=== PATIENT | male | born 1945 | race Caucasian/White ===

== ENCOUNTER → 2023-07-06 08:33 | Outpatient (CLI) | payer MEDICARE, OTHER, SELFPAY ==
--- NOTE | 2023-07-06 | DI.CT.S_ITS ---
PROCEDURE: CT LUNG LOW DOSE SCREENING INDICATIONS: lung cancer screening TECHNIQUE: Noncontrast 2.0-2.5 mm thick sections acquired from the pulmonary apices to the posterior costophrenic angles. 7 mm thick axial MIP, and 5 mm coronal and sagittal reformats were then acquired. For radiation dose reduction, the following was used: automated exposure control, adjustment of mA and/or kV according to patient size. COMPARISON: [facility], CT, CT LOW DOSE LUNG CA SCREENING, 05/23/2022, 10:39. FINDINGS: Image quality: Diagnostic, given the low radiation dose technique. Lungs and pleura: No suspicious pulmonary nodule. A benign calcified granuloma is seen in the left lower lobe. Bilateral centrilobular emphysema. No acute consolidation. No pleural effusion or pneumothorax. Mediastinum: Heart size is normal. No pericardial effusion. Mild coronary artery calcifications. No mediastinal adenopathy by size criteria. Thoracic aorta and central pulmonary arteries are normal in size. Esophagus is normal in caliber. No hiatal hernia. Bones and chest wall: No suspicious bony lesions. No vertebral body compression fractures. No axillary or supraclavicular adenopathy by size criteria. No thyroid nodules which require sonographic follow up, per consensus guidelines. Upper Abdomen: Visualized upper abdomen solid organs and bowel loops appear normal in the absence of contrast. IMPRESSION: No suspicious pulmonary nodules. LUNG-RADS 1; continued annual screening, if eligible. Clinically Significant Non-pulmonary Findings: None. Approved by: Donte Ivory M.D. on 07/06/2023 at 21:50
== END ==
PROVIDERS: Family Provider Family Medicine; PCP Family Medicine; Referring Provider Family Medicine; Visit Provider Family Medicine
DX: Z87.891 Personal history of nicotine dependence (principal); Z12.2 Encounter for screening for malignant neoplasm of respiratory organs; J43.9 Emphysema, unspecified
CPT/HCPCS: 71271

== ENCOUNTER 2024-09-09 09:43 | Emergency (ER) | payer MEDICARE, OTHER, SELFPAY ==
[2024-09-09] VITALS (30 sets, daily range): BP systolic 117–167; BP diastolic 59–122; PULSE 51–76; RESP 11–33; TEMP 36.4–37.2; O2SAT 91–100
--- NOTE | 2024-09-09 09:44 | DI.CT.S_ITS ---
PROCEDURE: CT ANGIO HEAD AND NECK INDICATIONS: Altered mental status TECHNIQUE: After the administration of intravenous contrast, 1 mm thick sections acquired from the aortic arch through the [place]. 3-dimensional bmlrnlh-rubepdpac-nsrlapfdii (MIP) and/or volume rendering reformats were acquired of the central intracranial vasculature and neck separately. For radiation dose reduction, the following was used: automated exposure control, adjustment of mA and/or kV according to patient size. COMPARISON: None. FINDINGS: Image quality: Diagnostic. BRAIN: CSF spaces: Ventricles are normal in size and shape. Basal cisterns are patent. No extra-axial fluid collections. Brain: No significant abnormality of the brain can be seen. Skull and face: Calvarium and facial bones appear intact, without suspicious lesions. Orbits appear normal. Sinuses: Sinuses and mastoids are clear. HEAD CT ANGIOGRAPHY: Anterior circulation: Intracranial internal carotid arteries are normal in size and flow. The flow within the paired anterior cerebral arteries is normal and symmetric. The flow within the middle cerebral arteries is normal and symmetric. The anterior communicating artery is seen. No aneurysms are seen. Posterior circulation: Visualized portions of the vertebral arteries demonstrate normal caliber, and join to form a normal appearing basilar artery. Flow within the posterior cerebral arteries is normal and symmetric. No aneurysms are seen. NECK CT ANGIOGRAPHY: Carotid system: The great vessels demonstrate a conventional anatomy as they arise from the aortic arch. The origins of the common carotid arteries appear patent. The common carotid arteries demonstrate normal caliber and courses. The bifurcation regions are both widely patent. The internal carotid arteries demonstrate normal calibers and courses. Posterior circulation: The origins of the vertebral arteries both appear widely patent. The more superior extracranial portions of both vertebral arteries also demonstrate normal courses and calibers. They join to form a normal appearing basilar artery. Soft tissues: Visualized neck soft tissues demonstrate no suspicious abnormalities. Bones: No suspicious bony lesions. Visualized cervical spine appears normally aligned. IMPRESSION: No significant intracranial arterial abnormality is seen. No significant abnormality is seen within the arteries of the neck. Any quantitative measurements of stenosis were performed using NASCET criteria. Dictated by: Darrell Murray M.D. on 09/09/2024 at 10:07 Approved by: Darrell Murray M.D. on 09/09/2024 at 10:10
--- NOTE | 2024-09-09 09:44 | DI.CT.S_ITS ---
PROCEDURE: CT STROKE INDICATIONS: Altered mental status TECHNIQUE: Noncontrast 4.5 mm thick angled axial sections acquired from the foramen magnum to the vertex, with coronal reformats. For radiation dose reduction, the following was used: automated exposure control, adjustment of mA and/or kV according to patient size. COMPARISON: None. FINDINGS: Image quality: Diagnostic. CSF spaces: Basal cisterns are patent. No extra-axial fluid collections. The ventricles are symmetric in size and shape. Brain: No intracranial bleeds or masses. There is cerebral volume loss for age, with resultant ventricular and sulcal prominence. There are periventricular and deep white matter chronic small vessel ischemic changes. There is intracranial internal carotid artery atherosclerosis. Skull and face: Calvarium and visualized facial bones appear intact, without suspicious lesions. Sinuses: Visualized sinuses and mastoids are clear. IMPRESSION: No acute intracranial pathology. Comment: Findings were discussed with Dr. Lira on 09/09/2024 at 1001 hours This study fulfills neurological imaging criteria for inclusion or exclusion of acute stroke therapies based on available published neurological guidelines. Dictated by: Darrell Murray M.D. on 09/09/2024 at 10:00 Approved by: Darrell Murray M.D. on 09/09/2024 at 10:02
--- NOTE | 2024-09-09 09:48 | DI.CT.S_ITS ---
PROCEDURE: CT CERVICAL SPINE WO CON INDICATIONS: altered mental status TECHNIQUE: Noncontrast 3 mm thick sections acquired from the skull base to the T4 level. Sagittal and coronal reformats were then constructed. For radiation dose reduction, the following was used: automated exposure control, adjustment of mA and/or kV according to patient size. COMPARISON: None. FINDINGS: Image quality: Excellent. Bones: No fractures or dislocations. Diffuse osteopenia. Mild superior endplate compressions of T1, T2, and T4 are likely chronic. Diffuse cervical spondylosis. Multilevel facet arthropathy. There is severe left bony foraminal narrowing at C3-C4 and C4-C5. Visualized superior ribs are intact. Soft tissues: Prevertebral soft tissues are normal in thickness. No paravertebral hematomas. No apical pneumothoraces. IMPRESSION: 1. No displaced fracture or traumatic subluxation. 2. Compressions of T1, T2, and T4 likely chronic. 3. Cervical spondylosis. Comment: Consider nonemergent DEXA bone densitometry. Dictated by: Darrell Murray M.D. on 09/09/2024 at 10:02 Approved by: Darrell Murray M.D. on 09/09/2024 at 10:05
--- NOTE | 2024-09-09 09:49 | EKG_ITS ---
[place] [id number] [address] [place] [address] Test Date: 2024-09-09 Pat Name: Trevor Roberts Department: Room: Gender: Male [employer]: JEFE : 1945 Requested By: Order Number: [id number] Reading MD: Minh Devlin MD Measurements Intervals [place] Rate: 69 P: 12 NE: 204 QRS: -61 QRSD: 112 T: 80 QT: 398 QTc: 426 Interpretive Statements Normal sinus rhythm Left axis deviation Nonspecific ST and T wave abnormality Electronically Signed On 09-10-2024 7:36:18 PST by Minh Devlin MD
--- NOTE | 2024-09-09 09:50 | ED.AMS ---
HPI - Altered Mental Status General Chief Complaint: Neuro Symptoms/Deficit Stated Complaint: Altered mental status,code stroke Time Seen by Provider: 09/09/24 09:44 History of Present Illness HPI narrative: Patient brought in by ambulance from local [facility]. Blood sugar 126. Last well-known possibly 9:00 a.m., about 50 minutes ago. Patient was with a friend. Friend had left him at the car briefly and return it to find him on the ground next to the car. Patient was unresponsive by EMS but now becoming much more alert and answering to name. He denies any history of seizure. Patient is restless at this time. Has bruising to the right eyebrow area. He is moving all 4 extremities. Code stroke was activated prior to arrival. Related Data Home Medications Medication Instructions Recorded Confirmed ASPIRIN (Aspirin EC) 81 mg PO QDAY ##0 02/29/12 09/09/24 ibuprofen 200 mg tablet 200 mg PO Q6HP ##0 01/19/13 gabapentin 300 mg capsule 300 mg PO BEDTIME PRN foot pain 09/09/24 09/09/24 omeprazole magnesium 20 mg 20 mg PO BID 09/09/24 09/09/24 capsule,delayed release (Acid Window Sash Installer (omeprazole)) Previous Rx's Medication Instructions Recorded simvastatin 40 mg tablet 40 mg PO HS #90 tabs 02/05/17 levetiracetam 500 mg tablet 500 mg PO BID #60 tabs 09/09/24 (Keppra) Allergies Allergy/AdvReac Type Severity Reaction Status Date / Time No Known Drug Allergies Allergy Verified 09/09/24 09:58 Review of Systems Review of Systems Narrative: GENERAL: Negative chills, fatigue, malaise, fever, sweats. HEENT: Negative sinus pain, ear pain, sore throat positive tongue injury RESPIRATORY: Negative dyspnea, cough CARDIOVASCULAR: Negative chest pain, palpitations GASTROINTESTINAL: Negative nausea, vomiting, abdominal pain : Negative dysuria, frequency, hematuria MUSCULOSKELETAL: Negative muscle or bony pain SKIN: Negative rash, skin lesions NEUROLOGIC: Negative weakness, numbness, positive confusion, positive seizure ROS Unobtainable: All systems reviewed & are unremarkable except as noted in HPI and below Patient History Surgical History (Updated 11/19/17 @ 05:52 by Conversion Provider) Status post appendectomy Family History (Updated 10/30/16 @ 00:00 by Conversion Provider) Mother Stroke Social History Smoking Status: Unknown if ever smoked Exam Narrative Exam Narrative: GENERAL: in no distress, not toxic not dyspneic HEAD: Normocephalic. Abrasion to the corner of the right eye/skin fold. EYES: Pupils equal round EOMI, no subconjunctival hematoma ENT: Mucous membranes moist. NECK: Trachea midline. No midline tenderness or step-off the cervical thoracic or lumbar spine CARDIOVASCULAR: Regular rate and rhythm RESPIRATORY: Clear to auscultation. Breath sounds equal bilaterally. No wheezes, rales, or rhonchi. GASTROINTESTINAL: Abdomen soft, non-tender EXTREMITIES: No gross deformities. Nontender bilateral shoulders elbows wrists pelvis hips knees and ankles. BACK: No flank tenderness. NEURO: On arrival patient awake alert oriented self and date of only. However after 1 hour patient awake alert oriented x4. Clear speech. Fast exam is negative. Improving rapidly. SKIN: Warm and dry, abrasion to the distal arm left side abrasion to the left patella. PSYCH: Not anxious, is cooperative Initial Vital Signs Initial Vital Signs: Vital Signs Temperature 97.6 F 09/09/24 09:44 Pulse Rate 75 09/09/24 09:44 Respiratory Rate 15 09/09/24 09:44 Blood Pressure 117/82 09/09/24 09:44 Pulse Oximetry 95 09/09/24 09:44 Oxygen Delivery Method Room Air 09/09/24 09:44 Scores NIH Stroke Scale Level of Conciousness: Alert, keenly responsive Ask month/age: Answers both questions correctly. Open/close eyes, close hand: Performs both tasks correctly Best gaze horizontal: Normal Visual daley: No visual loss Facial palsy: Normal symetrical movement Left arm drift: No drift for full 10 sec Right arm drift: No drift for full 10 sec Left leg drift: No drift for full 5 sec Right leg drift: No drift for full 5 sec Limb ataxia: Absent Sensory on face/arms/legs: Normal, no sensory loss Best language: No aphasia, normal Dysarthria: Normal Extinction or inattention: No abnormality Total NIH Stroke scale score: 0 Course Orders Ordered: Discontinued Medications Bacitracin (Bacitracin Oint 0.9 Gm Pckt) 1 applic TOP NOW ONE Stop: 09/09/24 16:15 Last Admin: 09/09/24 16:17 Dose: 1 applic Documented By: JG Levetiracetam 1,000 mg/ Sodium (Chloride) 110 mls @ 440 mls/hr IV NOW ONE Stop: 09/09/24 10:12 Last Infusion: 09/09/24 11:07 Dose: Infused Documented By: Admin: 09/09/24 10:36 Dose: 440 mls/hr Documented By: CHEKO Sodium Chloride (Normal Saline 0.9%) 500 mls @ 1,000 mls/hr IV BOLUS ONE Stop: 09/09/24 10:43 Last Infusion: 09/09/24 11:16 Dose: Infused Documented By: Admin: 09/09/24 10:33 Dose: 1,000 mls/hr Documented By: RB Lorazepam (Lorazepam 2 Mg/Ml Inj) 2 mg IV NOW ONE Stop: 09/09/24 09:47 Last Admin: 09/09/24 13:14 Dose: Not Given Documented By: JUAN Vital Signs Vital signs: Vital Signs - 8 hr 09/09/24 09:44 09/09/24 09:55 09/09/24 09:56 Temperature 97.6 F Pulse Rate 75 76 Respiratory Rate 15 33 H Blood Pressure 117/82 117/82 Pulse Oximetry 95 Oxygen Delivery Method Room Air 09/09/24 09:56 09/09/24 10:00 09/09/24 10:00 Temperature Pulse Rate 75 73 Respiratory Rate 26 H 23 Blood Pressure 139/76 Pulse Oximetry 94 Oxygen Delivery Method 09/09/24 10:05 09/09/24 10:05 09/09/24 10:10 Temperature Pulse Rate 72 Respiratory Rate 26 H Blood Pressure 165/78 H 141/76 H Pulse Oximetry Oxygen Delivery Method 09/09/24 10:10 09/09/24 10:16 09/09/24 10:16 Temperature Pulse Rate 66 67 Respiratory Rate 16 26 H Blood Pressure 142/73 H Pulse Oximetry 91 Oxygen Delivery Method Room Air 09/09/24 10:20 09/09/24 10:21 09/09/24 10:21 Temperature Pulse Rate 57 L 56 L Respiratory Rate 17 24 Blood Pressure 162/72 H Pulse Oximetry 100 96 Oxygen Delivery Method 09/09/24 10:26 09/09/24 10:26 09/09/24 10:30 Temperature Pulse Rate 68 59 L Respiratory Rate 11 L 27 H Blood Pressure 141/63 H Pulse Oximetry 94 94 Oxygen Delivery Method 09/09/24 10:31 09/09/24 10:31 09/09/24 10:46 Temperature Pulse Rate 58 L Respiratory Rate 30 H Blood Pressure 167/117 H 153/122 H Pulse Oximetry 91 Oxygen Delivery Method 09/09/24 10:46 09/09/24 11:00 09/09/24 11:01 Temperature Pulse Rate 59 L 62 58 L Respiratory Rate 18 21 Blood Pressure Pulse Oximetry 92 100 99 Oxygen Delivery Method 09/09/24 11:01 09/09/24 11:16 09/09/24 11:16 Temperature Pulse Rate 71 Respiratory Rate 22 Blood Pressure 164/77 H 124/65 Pulse Oximetry 99 Oxygen Delivery Method 09/09/24 11:30 09/09/24 11:31 09/09/24 11:31 Temperature Pulse Rate 55 L 55 L Respiratory Rate 18 12 Blood Pressure 132/59 L Pulse Oximetry 98 99 Oxygen Delivery Method 09/09/24 11:45 09/09/24 11:45 09/09/24 12:00 Temperature Pulse Rate 55 L 54 L Respiratory Rate 21 19 Blood Pressure 131/61 Pulse Oximetry 98 99 Oxygen Delivery Method 09/09/24 12:00 09/09/24 12:30 09/09/24 12:32 Temperature Pulse Rate 70 Respiratory Rate Blood Pressure 132/60 158/67 H Pulse Oximetry 95 Oxygen Delivery Method 09/09/24 12:32 09/09/24 13:00 09/09/24 13:30 Temperature Pulse Rate 54 L 54 L 56 L Respiratory Rate 11 L 21 Blood Pressure Pulse Oximetry 98 99 97 Oxygen Delivery Method 09/09/24 14:00 09/09/24 15:04 09/09/24 15:06 Temperature Pulse Rate 51 L 52 L Respiratory Rate 17 Blood Pressure Pulse Oximetry 96 98 97 Oxygen Delivery Method 09/09/24 15:06 09/09/24 15:15 09/09/24 15:15 Temperature Pulse Rate 52 L Respiratory Rate 18 Blood Pressure 133/64 144/69 H Pulse Oximetry 98 Oxygen Delivery Method 09/09/24 15:30 09/09/24 15:30 Temperature Pulse Rate 54 L Respiratory Rate 21 Blood Pressure 130/63 Pulse Oximetry 97 Oxygen Delivery Method MDM - Altered Mental Status Lab Data 09/09/24 10:00 09/09/24 10:00 Labs: Lab Results 09/09/24 09/09/24 09/09/24 Range/Units 10:00 10:11 12:25 WBC 7.3 (4.5-11.0) X10^3/uL RBC 3.74 L (4.5-5.9) X10^6/uL Hgb 12.0 L (13.5-17.5) g/dL Hct 34.6 L (41-53) % MCV 92.6 (80-100) fL MCH 32.1 (26-34) PG MCHC 34.7 (30-36) % RDW 13.6 (11.6-14.8) % Plt Count 177 (150-400) X10^3/uL Neut % (Auto) 61.2 (50-75) % Lymph % (Auto) 29.8 (25-40) % [place] % (Auto) 7.6 (3-14) % Eos % (Auto) 0.6 L (2-4) % Baso % (Auto) 0.8 (0-2) % Neut # (Auto) 4400 (3855-9570) /uL Lymph # (Auto) 2200 (1647-5873) /uL [place] # (Auto) 600 (0-900) /uL Eos # (Auto) 0 (0-450) /uL Baso # (Auto) 100 (0-100) /uL PT 11.5 (9.4-12.5) SECONDS INR 1.0 (0.9-1.3) APTT 27 (25.1-36.5) SECONDS Sodium 132 L (137-145) mmol/L Potassium 3.8 (3.4-5.1) mmol/L Chloride 100 (98-107) mmol/L Carbon Dioxide 18 L (22-32) mmol/L BUN 14 (9-20) mg/dL Creatinine 0.99 (0.66-1.25) mg/dL Estimated GFR > 60 (>60) mL/min BUN/Creatinine Ratio 14.1 (6-22) Glucose 159 H (80-110) mg/dL Lactate 5.2 H* 1.3 (0.7-2.1) mmol/L Calcium 9.0 (8.4-10.2) mg/dL Total Bilirubin 0.6 (0.2-1.3) mg/dL AST 36 (17-59) IU/L ALT 25 (<50) IU/L Alkaline Phosphatase 53 (38-126) U/L Total Creatine Kinase 148 (55-170) U/L Troponin I 0.024 (0.01-0.034) ng/mL Total Protein 6.3 (6.3-8.2) g/dL Albumin 4.1 (3.5-5.0) g/dL Globulin 2.2 (1.7-4.1) g/dL Albumin/Globulin Ratio 1.9 (1.0-2.8) Ethyl Alcohol < 10 ( - 10) mg/dL Urine Dip Bedside Urine Glucose Negative Bedside Urine Bilirubin - Negative Bedside Urine Ketone - Negative Urine Specific [place] 1.015 Bedside Urine Occult Blood - Negative Bedside Urine pH 7.0 Bedside Urine Protein - Negative Bedside Urine Urobilinogen +/- 1mg Bedside Urine Nitrite - Negative Bedside Urine Leukocytes - Negative Esterase Imaging Data CT scan - head: Radiologist's Impression: No acute finding CT - cervical spine: Radiologist's Impression: [place] [address] CT Scan Report Signed Patient: Trevor Roberts MR#: [id number] : 1945 Acct:[id number] Age/Sex: 79 / M Date of Service: 09/09/24 Loc: ED Accession Number: [id number] Procedure: CT cervical spine wo con Ordering Provider: Myke Lira MD PROCEDURE: CT CERVICAL SPINE WO CON INDICATIONS: altered mental status TECHNIQUE: Noncontrast 3 mm thick sections acquired from the skull base to the T4 level. Sagittal and coronal reformats were then constructed. For radiation dose reduction, the following was used: automated exposure control, adjustment of mA and/or kV according to patient size. COMPARISON: None. FINDINGS: Image quality: Excellent. Bones: No fractures or dislocations. Diffuse osteopenia. Mild superior endplate compressions of T1, T2, and T4 are likely chronic. Diffuse cervical spondylosis. Multilevel facet arthropathy. There is severe left bony foraminal narrowing at C3-C4 and C4-C5. Visualized superior ribs are intact. Soft tissues: Prevertebral soft tissues are normal in thickness. No paravertebral hematomas. No apical pneumothoraces. IMPRESSION: 1. No displaced fracture or traumatic subluxation. 2. Compressions of T1, T2, and T4 likely chronic. 3. Cervical spondylosis. Comment: Consider nonemergent DEXA bone densitometry. Dictated by: Darrell Murray M.D. on 09/09/2024 at 10:02 Approved by: Darrell Murray M.D. on 09/09/2024 at 10:05 CTA - brain/neck: Radiologist's Impression: [address] [address] [address] Scan Report Signed Patient: Trevor Roberts MR#: [id number] : 1945 Acct:[id number] Age/Sex: 79 / M Date of Service: 09/09/24 Loc: ED Accession Number: [id number] Procedure: CT angio head and neck Ordering Provider: Myke Lira MD PROCEDURE: CT ANGIO HEAD AND NECK INDICATIONS: Altered mental status TECHNIQUE: After the administration of intravenous contrast, 1 mm thick sections acquired from the aortic arch through the [place]. 3-dimensional rycvxsk-okpueqdfo-gxspveblwr (MIP) and/or volume rendering reformats were acquired of the central intracranial vasculature and neck separately. For radiation dose reduction, the following was used: automated exposure control, adjustment of mA and/or kV according to patient size. COMPARISON: None. FINDINGS: Image quality: Diagnostic. BRAIN: CSF spaces: Ventricles are normal in size and shape. Basal cisterns are patent. No extra-axial fluid collections. Brain: No significant abnormality of the brain can be seen. Skull and face: Calvarium and facial bones appear intact, without suspicious lesions. Orbits appear normal. Sinuses: Sinuses and mastoids are clear. HEAD CT ANGIOGRAPHY: Anterior circulation: Intracranial internal carotid arteries are normal in size and flow. The flow within the paired anterior cerebral arteries is normal and symmetric. The flow within the middle cerebral arteries is normal and symmetric. The anterior communicating artery is seen. No aneurysms are seen. Posterior circulation: Visualized portions of the vertebral arteries demonstrate normal caliber, and join to form a normal appearing basilar artery. Flow within the posterior cerebral arteries is normal and symmetric. No aneurysms are seen. NECK CT ANGIOGRAPHY: Carotid system: The great vessels demonstrate a conventional anatomy as they arise from the aortic arch. The origins of the common carotid arteries appear patent. The common carotid arteries demonstrate normal caliber and courses. The bifurcation regions are both widely patent. The internal carotid arteries demonstrate normal calibers and courses. Posterior circulation: The origins of the vertebral arteries both appear widely patent. The more superior extracranial portions of both vertebral arteries also demonstrate normal courses and calibers. They join to form a normal appearing basilar artery. Soft tissues: Visualized neck soft tissues demonstrate no suspicious abnormalities. Bones: No suspicious bony lesions. Visualized cervical spine appears normally aligned. IMPRESSION: No significant intracranial arterial abnormality is seen. No significant abnormality is seen within the arteries of the neck. Any quantitative measurements of stenosis were performed using NASCET criteria. Dictated by: Darrell Murray M.D. on 09/09/2024 at 10:07 Approved by: Darrell Murray M.D. on 09/09/2024 at 10:10 CT scan - chest: Radiologist's Impression: [address] [address] [address] Scan Report Signed Patient: Trevor Roberts MR#: [id number] : 1945 Acct:[id number] Age/Sex: 79 / M Date of Service: 09/09/24 Loc: ED Accession Number: [id number] Procedure: CT angio chest PE protocol Ordering Provider: Myke Lira MD PROCEDURE: CT ANGIO CHEST PE PROTOCOL INDICATIONS: Chest pain TECHNIQUE: After the administration of intravenous contrast, 2 mm thick sections acquired from the pulmonary apices to the posterior costophrenic angles. 3-dimensional maximum intensity projection (MIP) coronal and sagittal reformats were then acquired through the thorax. For radiation dose reduction, the following was used: automated exposure control, adjustment of mA and/or kV according to patient size. COMPARISON: [facility], CT, CT LUNG LOW DOSE SCREENING, 07/06/2023, 8:46. FINDINGS: Image quality: Diagnostic Lungs and pleura: Agmv-pd-zevaflay basal atelectasis and ground-glass opacities. No pleural effusions. Mediastinum, heart, and esophagus: No acute pulmonary embolism. Coronary calcifications and cardiomegaly. Mild nonspecific wall thickening at the gastroesophageal junction. The esophagus is mildly patulous. No pathologic lymph nodes by size criteria Chest wall and thyroid: Unremarkable Upper abdomen: Separately dictated Bones: There are degenerative changes. Suspect old left rib fractures. IMPRESSION: No acute pulmonary embolism. Mild lower lung ground-glass opacities which may be infectious/inflammatory, with superimposed atelectasis. Consider continued lung cancer screening if patient remains eligible. Cardiomegaly and coronary calcifications Dictated by: Cornelius Johnson M.D. on 09/09/2024 at 12:40 Approved by: Cornelius Johnson M.D. on 09/09/2024 at 12:44 CT scan - abdomen/pelvis: Radiologist's Impression: [address] [address] [address] Scan Report Signed Patient: Trevor Roberts MR#: [id number] : 1945 Acct:[id number] Age/Sex: 79 / M Date of Service: 09/09/24 Loc: ED Accession Number: [id number] Procedure: CT abdomen pelvis w con Ordering Provider: Myke Lira MD PROCEDURE: CT ABDOMEN PELVIS W CON INDICATIONS: Abdominal pain TECHNIQUE: After the administration of intravenous contrast, axial sections acquired from the lung bases to the pubic symphysis. Coronal and sagittal reformats were performed. For radiation dose reduction, the following was used: automated exposure control, adjustment of mA and/or kV according to patient size. COMPARISON: None. FINDINGS: Image quality: Diagnostic Lower chest: Separately dictated Mildly patulous distal esophagus with small hiatal hernia. Coronary calcifications. Liver: Unremarkable Gallbladder and biliary system: Unremarkable, nondilated Pancreas: Trcc-qr-wewxxwzy parenchymal atrophy. No ductal dilation Spleen: Prominent at 13 cm AP dimension Adrenals: No discrete nodules Kidneys: No solid mass. No hydronephrosis. Vessels and lymph nodes: The main portal vein appears patent. No abdominal aortic aneurysm. No pathologic lymphadenopathy by size criteria. Bowel and peritoneum: There is moderate fecal loading. Colonic diverticula. No pathologic ascites. No drainable abscess Body wall: Unremarkable Pelvis: There are small bladder diverticula. Bladder is distended, filled with contrast. Prostate is heterogeneous and not well evaluated on CT Bones: There are degenerative changes. No acute or suspicious osseous finding. L5 on S1 anterolisthesis with chronic appearing pars defects. IMPRESSION: Moderate fecal loading. No small bowel obstruction. No significant acute inflammatory changes. Other findings above. Dictated by: Cornelius Johnson M.D. on 09/09/2024 at 12:44 Approved by: Cornelius Johnson M.D. on 09/09/2024 at 12:47 MRI brain: Radiologist's Impression: [address] [address] Magnetic Resonance Report Signed Patient: Trevor Roberts MR#: [id number] : 1945 Acct:[id number] Age/Sex: 79 / M Date of Service: 09/09/24 Loc: ED Accession Number: [id number] Procedure: MR head/brain wo con Ordering Provider: Myke Lira MD PROCEDURE: MR HEAD/BRAIN WO CON INDICATIONS: confusion/seizure TECHNIQUE: Non-contrast axial T1 spin echo, axial T2 fast spin echo, sagittal and axial FLAIR, coronal T2 fast spin echo, axial gradient echo, axial diffusion and ADC through the brain. COMPARISON: [facility], CT, CT STROKE, 09/09/2024, 9:48. FINDINGS: Image quality: Excellent. CSF spaces: Ventricles appear symmetric in size and shape. Basal cisterns are patent. No extra-axial fluid collections. Brain: No intracranial bleeds or mass effects. There is cerebral volume loss for age. There are very minimal, age-appropriate periventricular and deep white matter chronic small vessel ischemic changes. Brainstem appears normal. Diffusion-weighted images show no acute infarct. No chronic ischemic insults. Normal intravascular flow voids are present. Skull and face: Calvarial bone marrow is normal in signal. Orbits are normal. Sinuses: Sinuses and mastoids are clear. IMPRESSION: Negative brain MRI for patient age. No acute process. Dictated by: Darrell Murray M.D. on 09/09/2024 at 14:57 Approved by: Darrell Murray M.D. on 09/09/2024 at 14:59 MDM Narrative Medical decision making narrative: Patient brought in by ambulance from local [facility]. Blood sugar 126. Last well-known possibly 9:00 a.m., about 50 minutes ago. Patient was with a friend. Friend had left him at the car briefly and return it to find him on the ground next to the car. Patient was unresponsive by EMS but now becoming much more alert and answering to name. He denies any history of seizure. Patient is restless at this time. Has bruising to the right eyebrow area. He is moving all 4 extremities. Code stroke was activated prior to arrival. Patient has abrasion to left elbow right knee and right eyebrow After history and exam CT head CT angiogram head and neck EKG troponin urinalysis CBC CMP alcohol level CT cervical spine [facility] Medical records reviewed: No recent visit for this complaint Differential considered: Includes but not limited to stroke seizure TIA substance abuse arrhythmia Lab Test results independently reviewed as above. Pertinent findings: WBC 7.3 hemoglobin 12.0 hematocrit 34.6 platelets 177 INR 1.0 sodium 132 potassium 3.8 glucose 159 lactic acid 5.2 GFR greater than 60 troponin 0.024 alcohol negative Independently reviewed EKG normal sinus rhythm rate [address] elevation or depression Imaging studies independently reviewed: CT head no acute finding CT angiogram head and neck no acute finding CT cervical spine no acute finding CT chest abdomen pelvis no acute finding Consultations: 10:[address] head without contrast negative, spoke with radiologist Dr. Murray 10:07 a.m.. Spoke with [facility] tele stroke Neurology, dr watt, does not think this warrants TNK at this time. Patient is rapidly improving. Likely seizure episode Treatments: Keppra Ativan normal saline Re-evaluations: 10:05 a.m. patient awake alert oriented x3. Knows where he was going this morning with his friend. He knows his date of . Denies any history of seizures or strokes. He does not recall what happened this morning. Fast exam is negative. Patient has improve significantly since arrival. To friends are at bedside. [place] One friend was right next to him when he passed out but did not witness the passing out but turned around and some immediately unconscious. No flailing of the limbs or seizure activity. He was unresponsive face down. Patient is at baseline according to his friends. 3:15 p.m.. Daughter at bedside cousin at bedside. Reviewed with patient and family results. MRI is reassuring. Patient is at baseline during course of stay now. Has not had any confusion. Reviewed with him likely new onset seizure. I do not think it is a traumatic seizure as patient does not recall mechanical fall or any symptoms before syncope. Never had any chest pain back pain abdominal pain dizziness palpitations dyspnea headache. They do understand no driving operating machinery for 3 months until cleared by neurology services. He does have family doctor on [place] to refer him to neurology services. Prescription for Keppra 500 mg twice a day will be provided. Wound care instructions for skin injury reviewed in he agrees and is comfortable with the plan. Family is driving. Discussion: Appropriate for discharge home exam is reassuring. Return precautions reviewed. No seizure or confusion after arrival. Neurology service was contacted. Workup has been reassuring. Return precautions reviewed and patient and family desire discharge home. Neurology service was contacted. Diagnosis: New onset seizure, skin abrasions Discharge Plan Departure Patient Disposition: Home Clinical Impression: New onset seizure, Abrasion of skin Instructions: DI for Seizure Disorder -- Adult, DI for Abrasion Activity Restrictions/Additional Instructions: Your exam and laboratory studies and imaging studies are reassuring. It is possible you have developed a seizure. No driving operating machinery for 3 months until cleared by a neurologist. Please see your family doctor for referral to Neurology Services for seizure workup and evaluation. Prescription medication has been sent to your pharmacy to continue. Please clean your skin injuries daily with warm soap and water and apply a thin layer of topical antibiotic. Return if worse if any questions or concerns. Prescriptions: New levetiracetam [Keppra] 500 mg tablet 500 mg PO BID Qty: 60 0RF No Action ASPIRIN (Aspirin EC) 81 mg PO QDAY Qty: 0 ibuprofen 200 MG tablet 200 mg PO Q6HP Qty: 0 simvastatin 40 MG tablet 40 mg PO HS Qty: 90 0RF gabapentin 300 mg Capsule 300 mg PO BEDTIME MDD 300 PRN (Reason: foot pain) omeprazole magnesium [Acid Window Sash Installer (omeprazole)] 20 mg Capsule,Delayed Release(Dr/Ec) 20 mg PO BID Referrals: Susy Hanks MD [Primary Care Provider] - Stand Alone Forms: Patient Portal/API/Survey
[2024-09-09 10:15] LABS: Add Manual Diff / Slide Review NO; Basophils Absolute Auto 100 /uL (0-100); Basophils Percent Auto 0.8 % (0-2); Eosinophils Absolute Auto 0 /uL (0-450); Eosinophils Percent Auto 0.6 % (2-4); Hematocrit 34.6 % (41-53); Lymphocytes Absolute Auto 2200 /uL (1100-4500); Lymphocytes Percent Auto 29.8 % (25-40); Mean Corpuscular HGB Conc 34.7 % (30-36); Mean Corpuscular Hemoglobin 32.1 PG (26-34); Mean Corpuscular Volume 92.6 fL (80-100); Monocytes Absolute Auto 600 /uL (0-900); Monocytes Percent Auto 7.6 % (3-14); Neutrophils Absolute Auto 4400 /uL (1500-7000); Neutrophils Percent Auto 61.2 % (50-75); Platelet Count 177 X10^3/uL (150-400); Red Blood Cell Count 3.74 X10^6/uL (4.5-5.9); Red Cell Distribution Width 13.6 % (11.6-14.8); White Blood Cell Count 7.3 X10^3/uL (4.5-11.0)
[2024-09-09 10:22] LABS: Prothrombin Time 11.5 SECONDS (9.4-12.5)
[2024-09-09 10:25] LABS: PTT Partial Thromboplastin Tim 27 SECONDS (25.1-36.5)
[2024-09-09 10:26] LABS: Alanine Aminotransferase 25 IU/L (<50); Albumin 4.1 g/dL (3.5-5.0); Albumin Globulin Ratio 1.9 (1.0-2.8); Alkaline Phosphatase 53 U/L (38-126); Aspartate Aminotransferase 36 IU/L (17-59); BUN Creatinine Ratio 14.1 (6-22); Bilirubin Total 0.6 mg/dL (0.2-1.3); Blood Urea Nitrogen 14 mg/dL (9-20); Carbon Dioxide 18 mmol/L (22-32); Chloride 100 mmol/L (98-107); Creatine Kinase 148 U/L (55-170); Estimated Glomerular Filt Rate > 60 mL/min (>60); Ethanol (ETOH) < 10 mg/dL; Globulin 2.2 g/dL (1.7-4.1); Glucose 159 mg/dL (80-110); HEMOLYSIS < 15 (0-50); Potassium 3.8 mmol/L (3.4-5.1); Sodium 132 mmol/L (137-145); Total Protein 6.3 g/dL (6.3-8.2)
[2024-09-09 10:29] LABS: Lactate (Lactic Acid) 5.2 mmol/L (0.7-2.1)
[2024-09-09] MEDS: SODIUM CHLORIDE 0.9% 500 ML 1000 ML IV (10:33)
[2024-09-09] MEDS: levETIRAcetam 1,000 MG in SODIUM CHLORIDE 0.9% 100 ML 440 MG IV (10:36)
[2024-09-09 10:37] LABS: Troponin I 0.024 ng/mL (0.01-0.034)
--- NOTE | 2024-09-09 10:43 | PC.NURSE ---
Patient was found down per ems report next to friends car at [facility]. Patient arrives with skin tear and outer aspect right orbital bruising. Patient has skin tear noted on left elbow the size of a quarter. Pin point abrasion on left knee and dime size skin tear on outer aspect of right leg 2 inches below the knee.
--- NOTE | 2024-09-09 10:48 | DI.MRI.S_ITS ---
PROCEDURE: MR HEAD/BRAIN WO CON INDICATIONS: confusion/seizure TECHNIQUE: Non-contrast axial T1 spin echo, axial T2 fast spin echo, sagittal and axial FLAIR, coronal T2 fast spin echo, axial gradient echo, axial diffusion and ADC through the brain. COMPARISON: [facility], CT, CT STROKE, 09/09/2024, 9:48. FINDINGS: Image quality: Excellent. CSF spaces: Ventricles appear symmetric in size and shape. Basal cisterns are patent. No extra-axial fluid collections. Brain: No intracranial bleeds or mass effects. There is cerebral volume loss for age. There are very minimal, age-appropriate periventricular and deep white matter chronic small vessel ischemic changes. Brainstem appears normal. Diffusion-weighted images show no acute infarct. No chronic ischemic insults. Normal intravascular flow voids are present. Skull and face: Calvarial bone marrow is normal in signal. Orbits are normal. Sinuses: Sinuses and mastoids are clear. IMPRESSION: Negative brain MRI for patient age. No acute process. Dictated by: Darrell Murray M.D. on 09/09/2024 at 14:57 Approved by: Darrell Murray M.D. on 09/09/2024 at 14:59
--- NOTE | 2024-09-09 10:53 | PC.NURSE ---
This RN informed Dr. Lira of patient increasing blood pressure. Provider asked this RN to verify patient home medications and if he took them today. This RN reconciled patient medications with patient. Patient denies taking any blood pressure medications. This RN informed provider. No new orders at this time. Patient shirt and jacket were cut when patient arrived from EMS. This RN assisted patient with taking off pants and underpants. Patient undergarments were wet upon arrival.
--- NOTE | 2024-09-09 11:00 | PC.NURSE ---
Patient friends Gabino and Santo were with patient at the [facility] terminal and just arrived at patient bedside. They confirm patient incident started at 0910. Patient friends deny seeing patient shake or convulse. They report patient eyes being immediately open but unresponsive.
--- NOTE | 2024-09-09 11:05 | PC.NURSE ---
Patient has what appears to be a bite at the end of his tounge. Patient left knee has abrasion.
--- NOTE | 2024-09-09 11:09 | DI.CT.S_ITS ---
PROCEDURE: CT ABDOMEN PELVIS W CON INDICATIONS: Abdominal pain TECHNIQUE: After the administration of intravenous contrast, axial sections acquired from the lung bases to the pubic symphysis. Coronal and sagittal reformats were performed. For radiation dose reduction, the following was used: automated exposure control, adjustment of mA and/or kV according to patient size. COMPARISON: None. FINDINGS: Image quality: Diagnostic Lower chest: Separately dictated Mildly patulous distal esophagus with small hiatal hernia. Coronary calcifications. Liver: Unremarkable Gallbladder and biliary system: Unremarkable, nondilated Pancreas: [id number] parenchymal atrophy. No ductal dilation Spleen: Prominent at 13 cm AP dimension Adrenals: No discrete nodules Kidneys: No solid mass. No hydronephrosis. Vessels and lymph nodes: The main portal vein appears patent. No abdominal aortic aneurysm. No pathologic lymphadenopathy by size criteria. Bowel and peritoneum: There is moderate fecal loading. Colonic diverticula. No pathologic ascites. No drainable abscess Body wall: Unremarkable Pelvis: There are small bladder diverticula. Bladder is distended, filled with contrast. Prostate is heterogeneous and not well evaluated on CT Bones: There are degenerative changes. No acute or suspicious osseous finding. L5 on S1 anterolisthesis with chronic appearing pars defects. IMPRESSION: Moderate fecal loading. No small bowel obstruction. No significant acute inflammatory changes. Other findings above. Dictated by: Cornelius Johnson M.D. on 09/09/2024 at 12:44 Approved by: Cornelius Johnson M.D. on 09/09/2024 at 12:47
--- NOTE | 2024-09-09 11:09 | DI.CT.S_ITS ---
PROCEDURE: CT ANGIO CHEST PE PROTOCOL INDICATIONS: Chest pain TECHNIQUE: After the administration of intravenous contrast, 2 mm thick sections acquired from the pulmonary apices to the posterior costophrenic angles. 3-dimensional maximum intensity projection (MIP) coronal and sagittal reformats were then acquired through the thorax. For radiation dose reduction, the following was used: automated exposure control, adjustment of mA and/or kV according to patient size. COMPARISON: [facility], CT, CT LUNG LOW DOSE SCREENING, 07/06/2023, 8:46. FINDINGS: Image quality: Diagnostic Lungs and pleura: [id number] basal atelectasis and ground-glass opacities. No pleural effusions. Mediastinum, heart, and esophagus: No acute pulmonary embolism. Coronary calcifications and cardiomegaly. Mild nonspecific wall thickening at the gastroesophageal junction. The esophagus is mildly patulous. No pathologic lymph nodes by size criteria Chest wall and thyroid: Unremarkable Upper abdomen: Separately dictated Bones: There are degenerative changes. Suspect old left rib fractures. IMPRESSION: No acute pulmonary embolism. Mild lower lung ground-glass opacities which may be infectious/inflammatory, with superimposed atelectasis. Consider continued lung cancer screening if patient remains eligible. Cardiomegaly and coronary calcifications Dictated by: Cornelius Johnson M.D. on 09/09/2024 at 12:40 Approved by: Cornelius Johnson M.D. on 09/09/2024 at 12:44
[2024-09-09 11:56] LABS: Reflexed Lactate in 2 Hours Y
[2024-09-09 12:49] LABS: Lactate 2HR (Lactic Acid Rflx) 1.3 mmol/L (0.7-2.1)
--- NOTE | 2024-09-09 13:45 | EKG_ITS ---
[facility] [address] [place] [address] Test Date: 2024-09-09 Pat Name: Trevor Roberts Department: [facility] Room: Gender: Male Label Paster: YO Mccarthy : 1945 Requested By: Order Number: [id number] Reading MD: Minh Devlin MD Measurements Intervals [place] Rate: 51 P: -8 IL: 188 QRS: -53 QRSD: 114 T: 117 QT: 494 QTc: 455 Interpretive Statements Sinus bradycardia with occasional premature ventricular complexes Left anterior fascicular block ST & T wave abnormality, consider anterolateral ischemia (new) Electronically Signed On 09-10-2024 7:37:04 PST by Minh Devlin MD
[2024-09-09] MEDS: BACITRACIN OINT 0.9 GM PCKT 1 APPLIC TOP (16:17)
== END 2024-09-09 17:10 | disposition home or self-care (01) ==
PROVIDERS: Emergency Provider Emergency Medicine; Family Provider Family Medicine; PCP Family Medicine
DX: G40.909 Epilepsy, unspecified, not intractable, without status epilepticus (principal); S00.11XA Contusion of right eyelid and periocular area, initial encounter; S80.212A Abrasion, left knee, initial encounter; S00.211A Abrasion of right eyelid and periocular area, initial encounter; R29.700 NIHSS score 0; R07.9 Chest pain, unspecified; R10.9 Unspecified abdominal pain; R00.1 Bradycardia, unspecified; I44.7 Left bundle-branch block, unspecified
CPT/HCPCS: 70450; 70496; 70498; 70551; 71275; 72125; 74177; 80053; 80320; 81003; 82550; 83605; 84484; 85025; 85610; 85730; 93005; 96365; 99285; J1953; Q9967